=== PATIENT | male | born 1990 | race Caucasian/White ===

== ENCOUNTER 2017-10-12 07:23 | Emergency (ER) | payer MEDICAID ==
[2017-10-12] MEDS: KETOROLAC 30 MG INJ IV (07:50)
[2017-10-12] MEDS: SOD CHLORIDE 0.9% 1,000 ML IV (07:50)
[2017-10-12] MEDS: ONDANSETRON 4 MG INJ IV (07:50)
[2017-10-12 08:07] LABS: ADD MAN DIFF? NO
[2017-10-12 08:10] LABS: WHITE BLOOD COUNT 7.8 10^3/ul (4.8-10.8)
[2017-10-12 08:10] LABS: BASOPHIL # 0.1 10^3/ul (0.0-0.1); BASOPHILS % 0.8 % (0.0-2.0); EOSINOPHILS # 0.5 10^3/ul (0.0-0.5); EOSINOPHILS % 5.7 % (0.0-7.0); HEMOGLOBIN 14.3 g/dl (14.0-18.0); LYMPHOCYTES # 2.5 10^3/ul (0.8-2.9); LYMPHOCYTES % 31.5 % (15.0-51.0); MEAN CORPUSCULAR HEMOGLOBIN 31.4 pg (29.0-33.0); MEAN CORPUSCULAR VOLUME 92.3 fl (82.0-101.0); MEAN PLATELET VOLUME 9.9 fl (7.4-10.4); MONOCYTE # 0.8 10^3/ul (0.3-0.9); MONOCYTES % 9.8 % (0.0-11.0); NEUTROPHILS % 51.6 % (39.0-77.0); PLATELET COUNT 318 10^3/UL (140-415); RED BLOOD COUNT 4.55 10^6/ul (4.70-6.10); RED CELL DISTRIBUTION WIDTH 12.8 % (11.5-14.5)
[2017-10-12 08:32] LABS: ADD UMIC NO; UR ASCORBIC ACID NEGATIVE (NEGATIVE); UR BILIRUBIN (Dip) NEGATIVE (NEGATIVE); UR BLOOD (Dip) NEGATIVE (NEGATIVE); UR CLARITY CLEAR (CLEAR); UR COLOR YELLOW (YELLOW); UR GLUCOSE (Dip) NEGATIVE (NEGATIVE); UR KETONES (Dip) NEGATIVE (NEGATIVE); UR LEUKOCYTE ESTERASE (Dip) NEGATIVE Leu/ul (NEGATIVE); UR NITRITE (Dip) NEGATIVE (NEGATIVE); UR SPECIFIC GRAVITY (Dip) 1.014 (1.003-1.030); UR TOTAL PROTEIN (Dip) NEGATIVE (NEGATIVE); UR UROBILINOGEN (Dip) NEGATIVE (NEGATIVE)
[2017-10-12 08:50] LABS: ALANINE AMINOTRANSFERASE 29 IU/L (13-69); ALBUMIN/GLOBULIN RATIO 1.05; ALKALINE PHOSPHATASE 78 IU/L (42-121); ANION GAP 14 (8-16); ASPARTATE AMINO TRANSFERASE 22 IU/L (15-46); BILIRUBIN,INDIRECT 0.4 mg/dl (0-1.1); BILIRUBIN,TOTAL 0.4 mg/dl (0.2-1.3); BLOOD UREA NITROGEN 14 mg/dl (7-20); CALCIUM 9.2 mg/dl (8.4-10.2); CARBON DIOXIDE 26 mmol/L (21-31); CHLORIDE 106 mmol/L (97-110); CREATININE 0.81 mg/dl (0.61-1.24); GLUCOSE 93 mg/dl (70-220); LIPASE 51 U/L (23-300); POTASSIUM 4.3 mmol/L (3.5-5.1); SODIUM 142 mmol/L (135-144); TOTAL PROTEIN 7.8 g/dl (6.1-8.1)
== END 2017-10-12 09:49 | disposition home or self-care (01) ==
LOC: FTE 07:23
DX: R10.13 Epigastric pain (principal); R11.0 Nausea
CPT/HCPCS: 36415; 76705; 80053; 81003; 83690; 85025; 96361; 96374; 96375; 99285-25

== ENCOUNTER 2018-01-27 09:28 | Emergency (ER) | payer SELFPAY, MEDICAID | END 2018-01-27 10:18 | disposition home or self-care (01) | LOC: FTE 09:28 | DX: L02.31 Cutaneous abscess of buttock (principal); Z87.891 Personal history of nicotine dependence | CPT/HCPCS: 99283 ==

== ENCOUNTER 2018-01-30 09:53 | Emergency (ER) | payer SELFPAY ==
[2018-01-30] MEDS: morphine 10 MG INJ IV (10:51)
[2018-01-30] MEDS: SOD CHLORIDE 0.9% 1,000 ML IV (10:52)
[2018-01-30] MEDS: DEXAMETHASONE 10 MG/ML 1 ML INJ IV (10:52)
[2018-01-30] MEDS: CLINDAMYCIN 900 MG/D5W (PMX) 50 ML IVPB (10:59)
[2018-01-30 11:06] LABS: ADD MAN DIFF? NO
[2018-01-30 11:13] LABS: ABNORMAL IP MESSAGE 1; BASOPHILS % 0.3 % (0.0-2.0); EOSINOPHILS # 0.1 10^3/ul (0.0-0.5); HEMATOCRIT 42.5 % (42.0-52.0); LYMPHOCYTES # 1.8 10^3/ul (0.8-2.9); LYMPHOCYTES % 12.9 % (15.0-51.0); MEAN CORPUSCULAR HEMOGLOBIN 30.8 pg (29.0-33.0); MEAN CORPUSCULAR HGB CONC 32.9 g/dl (32.0-37.0); MEAN CORPUSCULAR VOLUME 93.4 fl (82.0-101.0); MEAN PLATELET VOLUME 9.6 fl (7.4-10.4); MONOCYTE # 1.6 10^3/ul (0.3-0.9); MONOCYTES % 11.4 % (0.0-11.0); NEUTROPHIL # 10.2 10^3/ul (1.6-7.5); NEUTROPHILS % 73.9 % (39.0-77.0); PLATELET COUNT 360 10^3/UL (140-415); POSITIVE DIFF @See below; RED BLOOD COUNT 4.55 10^6/ul (4.70-6.10); RED CELL DISTRIBUTION WIDTH 12.8 % (11.5-14.5)
[2018-01-30 11:13] LABS: WHITE BLOOD COUNT 13.8 10^3/ul (4.8-10.8)
[2018-01-30] MEDS: LIDOCAINE 1% (MPF) 5 ML VIAL INJ (11:58)
[2018-01-30] MEDS: morphine 2 MG INJ IV (12:54)
== END 2018-01-30 13:20 | disposition home or self-care (01) ==
LOC: FTE 09:53
DX: L02.31 Cutaneous abscess of buttock (principal)
CPT/HCPCS: 10060; 36415; 85025; 96365; 96375; 96376; 99284-25

== ENCOUNTER 2018-02-01 14:20 | Emergency (ER) | payer MEDICAID | END 2018-02-01 15:30 | disposition home or self-care (01) | LOC: FTE 14:20 | DX: L02.31 Cutaneous abscess of buttock (principal) | CPT/HCPCS: 99281; Z7502 ==

== ENCOUNTER 2018-11-03 19:28 | Emergency (ER) | payer SELFPAY, MEDICAID ==
[2018-11-03] MEDS: AMOXICILLIN/CLAV 875 MG TAB PO (21:59)
[2018-11-03] MEDS: LIDOCAINE 1% (MDV) 20 ML INJ SC (22:00)
[2018-11-03] MEDS: DIPHTH/TET/ACEL PERTUSS (ADULT) 0.5 ML VIAL IM* (22:00)
== END 2018-11-03 22:19 | disposition home or self-care (01) ==
LOC: FTE 22:19
DX: S41.151A Open bite of right upper arm, initial encounter (principal); W54.0XXA Bitten by dog, initial encounter; Y92.9 Unspecified place or not applicable; Z23 Encounter for immunization
CPT/HCPCS: 12002; 90471; 90715; 99283-25